=== PATIENT | male | born 1980 ===

== ENCOUNTER 2017-10-19 22:17 | Emergency (ER) | payer SELFPAY ==
[2017-10-19 22:35] VITALS: O2SAT 99
--- NOTE | 2017-10-19 22:48 | ED PDOC ---
HPI: Abdomen Time Seen by Provider: 10/19/17 22:46 Chief Complaint (Nursing): Abdominal Pain Chief Complaint (Provider): llq pain History Per: Patient (36 y/o male here for left lower abd pain raditing to left testicular region that began with lifting at work. Denies any dysuria/urinary frequency/hematuria. Denies any back pain.) Past Medical History Reviewed: Historical Data, Nursing Documentation, Vital Signs Vital Signs: Last Vital Signs Temp 98.1 F 10/19/17 22:32 Pulse 79 10/19/17 22:32 Resp 16 10/19/17 22:32 BP 144/91 H 10/19/17 22:32 Pulse Ox 99 10/19/17 23:21 - Allergies Allergies/Adverse Reactions: Allergies Allergy/AdvReac Type Severity Reaction Status Date / Time No Known Allergies Allergy Verified 10/19/17 22:31 Review of Systems ROS Statement: Except As Marked, All Systems Reviewed And Found Negative Gastrointestinal: Positive for: Abdominal Pain Physical Exam - Reviewed Nursing Documentation Reviewed: Yes Vital Signs Reviewed: Yes - Physical Exam Appears: Positive for: Well, Non-toxic, No Acute Distress Head Exam: Positive for: ATRAUMATIC, NORMAL INSPECTION, NORMOCEPHALIC Skin: Positive for: Normal Color, Warm, DRY Eye Exam: Positive for: EOMI, Normal appearance, PERRL ENT: Positive for: Normal ENT Inspection Neck: Positive for: Normal, Painless ROM Cardiovascular/Chest: Positive for: Regular Rate, Rhythm Respiratory: Positive for: CNT, Normal Breath Sounds Gastrointestinal/Abdominal: Positive for: Normal Exam, Soft, Tenderness (llq pain tenderness) Male Genital Exam: Positive for: other (no obvious hernia. tender left testicular region.) Back: Positive for: Normal Inspection Extremity: Positive for: Normal ROM Neurologic/Psych: Positive for: Alert, Oriented - Laboratory Results Result Diagrams: 10/19/17 22:54 10/19/17 22:54 - ECG O2 Sat by Pulse Oximetry: 99 - Progress ED Course And Treament: SCROTAL US Right: Right testicle measures approximately 5.4 x 2.3 x 3 cm. Echotexture is uniform. There are no testicular masses. There is expected intratesticular blood flow. Right epididymal head measures approximately 12 x 10 mm. There is no skin thickening. There is no hydrocele Left: Left testicle measures approximately 5 x 2.3 x 2.7 cm. Echotexture is uniform. There are no testicular masses. There is expected intratesticular blood flow. Left epididymal head measures approximately 11 x 9 mm. There is no skin thickening. There is no hydrocele IMPRESSION: No torsion Thank you for allowing us to participate in the care of your patient. Dictated and Authenticated by: Maribell Sanchez MD Disposition - Clinical Impression Clinical Impression: Abdominal pain - Patient ED Disposition Is Patient to be Admitted: Transfer of Care - Disposition Disposition: Transfer of Care Disposition Time: 00:08 Condition: FAIR Instructions: Acute Abdomen (Belly Pain), Adult (DC) Forms: [employer] (Arabic) Patient Signed Over To: Trina Aldridge PA-C
[2017-10-19 23:00] LABS: BASO % 0.5 % (0.0-2.0); EOS # 0.1 K/uL (0.0-0.7); EOS % 1.8 % (0.0-4.0); HEMOGLOBIN 15.7 g/dL (12.0-18.0); LYMPH # 2.7 K/uL (1.0-4.3); LYMPH % 41.1 % (20.0-40.0); MEAN CORPUSCULAR HEMOGLOBIN 31.8 pg (27.0-31.0); MEAN CORPUSCULAR HGB CONC 35.3 g/dL (33.0-37.0); MEAN PLATELET VOLUME 9.9 fl (7.2-11.7); MONO # 0.6 K/uL (0.0-0.8); MONO % 8.7 % (0.0-10.0); NEUT # 3.1 K/uL (1.8-7.0); NEUT % 47.9 % (50.0-75.0); NRBC % 0.1 % (0.0-0.0); RBC 4.94 Mil/uL (4.40-5.90); RED CELL DISTRIBUTION WIDTH 12.6 % (11.5-14.5); WHITE BLOOD COUNT 6.5 K/uL (4.8-10.8)
[2017-10-19 23:01] LABS: URINE BILIRUBIN NEGATIVE (NEGATIVE); URINE BLOOD NEGATIVE (NEGATIVE); URINE CLARITY CLEAR (Clear); URINE COLOR STRAW (YELLOW); URINE GLUCOSE (UA) >=500 mg/dL (Normal); URINE LEUKOCYTE ESTERASE NEG Leu/uL (Negative); URINE PROTEIN NEGATIVE (NEGATIVE); URINE UROBILINOGEN 0.2-1.0 mg/dL (0.2-1.0)
[2017-10-19] MEDS ORDERED: Sodium Chloride 0.9% 2,000 ML IV STA (23:17)
[2017-10-19 23:18] LABS: ALB/GLOB RATIO 1.4 (1.0-2.1); ALBUMIN 4.6 g/dL (3.5-5.0); ALT/SGPT 35 U/L (21-72); AST/SGOT 24 U/L (17-59); BLOOD UREA NITROGEN 16 mg/dl (9-20); CALCIUM 9.9 mg/dL (8.4-10.2); GFR AFRICAN-AMERICAN > 60; GFR NON-AFRICAN AMERICAN > 60; LIPASE 108 U/L (23-300)
--- NOTE | 2017-10-19 23:20 | US ---
EXAM: US Scrotum EXAM DATE/TIME: 10/19/2017 10:41 PM CLINICAL HISTORY: 36 years old, male; Pain; Scrotum pain; Additional info: Left testicular pain TECHNIQUE: Real-time ultrasound of the scrotum with color Doppler and image documentation. COMPARISON: There are no prior studies for comparison. FINDINGS: Right: Right testicle measures approximately 5.4 x 2.3 x 3 cm. Echotexture is uniform. There are no testicular masses. There is expected intratesticular blood flow. Right epididymal head measures approximately 12 x 10 mm. There is no skin thickening. There is no hydrocele Left: Left testicle measures approximately 5 x 2.3 x 2.7 cm. Echotexture is uniform. There are no testicular masses. There is expected intratesticular blood flow. Left epididymal head measures approximately 11 x 9 mm. There is no skin thickening. There is no hydrocele IMPRESSION: No torsion
[2017-10-19 23:40] LABS: VENOUS BLOOD GAS PCO2 46 mmHg (40-60); VENOUS BLOOD GAS PO2 36 mm/Hg (30-55)
--- NOTE | 2017-10-20 00:14 | CT ---
EXAM: CT Abdomen and Pelvis Without Intravenous Contrast EXAM DATE/TIME: 10/19/2017 10:42 PM CLINICAL HISTORY: 36 years old, male; Pain; Abdominal pain; Colic; Additional info: R/O renal colic TECHNIQUE: Axial computed tomography images of the abdomen and pelvis without intravenous contrast. All CT scans at this facility use one or more dose reduction techniques, viz.: automated exposure control; ma/kV adjustment per patient size (including targeted exams where dose is matched to indication; i.e. head); or iterative reconstruction technique. Coronal and sagittal reformatted images were created and reviewed. COMPARISON: There are no prior studies for comparison. FINDINGS: Lung bases: See below. Heart: Heart size is normal. Lung bases are clear ABDOMEN: Liver: unremarkable Gallbladder and bile ducts: unremarkable Pancreas: unremarkable Spleen: Spleen is unremarkable. There is an accessory spleen in the left upper quadrant. Adrenals: unremarkable Kidneys and ureters: unremarkable Stomach and bowel: Stomach is distended with ingested material. Rotation is normal. Small bowel is diffusely distended with fluid. Terminal ileum is distended with fluid. Appendix is unremarkable. There is moderately large amount of stool throughout the colon. PELVIS: Appendix: See stomach and bowel Bladder: unremarkable Reproductive: Seminal vesicles and prostate are unremarkable. ABDOMEN and PELVIS: Intraperitoneal space: There is no free air or free fluid. Bones/joints: There are degenerative changes in the osseus structures. There is minimal wedging T10 and T11. Soft tissues: unremarkable Vasculature: There is minimal vascular calcification. Lymph nodes: There is shotty adenopathy. IMPRESSION: No acute solid visceral abnormality; no renal or ureteral stones or hydronephrosis; possible ileus; constipation Additional nonemergent findings as described above.
--- NOTE | 2017-10-20 03:34 | ED PDOC ---
- Laboratory Results Result Diagrams: 10/19/17 22:54 10/19/17 22:54 - ECG O2 Sat by Pulse Oximetry: 99 Medical Decision Making Medical Decision Making: Case endorsed to me from EDNA Hahn at [address] A/P to r/o renal colic. Labs reviewed : glucose 438 After NS bolus FS 290. US scrotum : FINDINGS: Right: Right testicle measures approximately 5.4 x 2.3 x 3 cm. Echotexture is uniform. There are no testicular masses. There is expected intratesticular blood flow. Right epididymal head measures approximately 12 x 10 mm. There is no skin thickening. There is no hydrocele Left: Left testicle measures approximately 5 x 2.3 x 2.7 cm. Echotexture is uniform. There are no testicular masses. There is expected intratesticular blood flow. Left epididymal head measures approximately 11 x 9 mm. There is no skin thickening. There is no hydrocele IMPRESSION: No torsion Dictated and Authenticated by: Maribell Sanchez MD 10/19/2017 11:19 PM Eastern Time ([place] & [place]) On re-evaluation, patient reports improvement of symptoms, denies any pain at this time. On exam, patient remains AAOx3, in no acute distress. Abdomen soft, non-tender, repeat neuro exam shows no focal findings. CT results reviewed. Diagnostic results d/w the patient in great detail. Diagnosis of abdominal pain , possible ileus and constipation d/w the patient. Advised drink plenty of water , light exercise/walking, increase intake of fiber rich foods. FS 242. Based on history, exam and diagnostic results, plan will be for outpatient follow up. Patient instructed to follow-up with the clinic in 1-2 days without fail. Return to the emergency room at any time for any new or worsening symptoms. Patient states he fully agrees with and understands discharge instructions. States that he agrees with the plan and disposition. Verbalized and repeated discharge instructions and plan. I have given the patient opportunity to ask any additional questions. Disposition Counseled Patient/Family Regarding: Studies Performed, Diagnosis, Need For Followup - Clinical Impression Clinical Impression: Abdominal pain, Constipation - POA Present On Arrival: None - Disposition Referrals: LTAC, [facility] within [facility] [Outside] Disposition: Routine/Home Disposition Time: 03:30 Condition: IMPROVED Additional Instructions: Thank you for letting us take care of you today. You were treated for abdominal pain, constipation, possible ileus. The emergency medical care you received today was directed at your acute symptoms. Drink plenty of water, do some light exercise/walking, increase intake of fiber rich foods. It may take several days for your symptoms to resolve. Return to the Emergency Department if your symptoms worsen, do not improve, or if you have any other problems. Please contact your doctor in 2 days for re-evaluation and follow up / or call one of the physicians/clinics you have been referred to that are listed on the Patient Visit Information form that is included in your discharge packet. Bring any paperwork you were given at discharge with you along with any medications you are taking to your follow up visit. Our treatment cannot replace ongoing medical care by a primary care provider (PCP) outside of the emergency department. Thank you for allowing the [facility] team to be part of your care today. Duglas por dejarnos atenderlo hoy. Te trataron por dolor abdominal, estre imiento, posible herminio. La atencin mdica de emergencia que recibi hoy estaba dirigida a mohini sntomas agudos. Tata kiersten agua, derik algo de ejercicio ligero / caminar, aumente la ingesta de alimentos ricos en fibra. Mohini sntomas pueden tardar varios heard en resolverse. Regrese al Departamento de Emergencia si mohini s ntomas empeoran, no mejoran o si tiene algn otro problema. Comunquese con [place] mdico en 2 heard para asa reevaluacin y seguimiento / o llame a jailene de los mdicos / clnicas a los que calvin referido y que figura en el formulario de Informacin de visitas del paciente que se incluye en [place] paquete de elisa. Traiga todos los documentos que recibi al momento del elisa junto con los medicamentos que est tomando en [place] visita de seguimiento. Nuestro tratamiento no puede reemplazar la atencin mdica en curso por parte de un proveedor de atencin primaria (PCP) fuera del departamento de emergencias. Duglas por permitir que el equipo de [email or web address] sea parte de [place] cuidado hoy. 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
[2017-10-20 04:02] VITALS: BP 133/87; PULSE 81; RESP 18; TEMP 97.8
== END 2017-10-20 03:50 | disposition home or self-care (01) ==
LOC: H.ER 22:17
DX: R10.32 Left lower quadrant pain (principal); N50.82 Scrotal pain; K59.00 Constipation, unspecified
CPT/HCPCS: 74176; 80053; 81003; 82803; 82948; 83690; 85025; 87086; 93975; 99284; J7040